=== PATIENT | female | born 2000 | race Caucasian/White ===

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

== ENCOUNTER 2020-02-22 20:44 | Emergency (ER) | payer OTHER, MEDICAID ==
[~2020-02-22] VITALS: Ht 165.1 cm; Wt 60.3 kg
[~2020-02-22 20:44] MED LIST: AUGMENTIN200 MG/51 PO; POT CITRATE-CI1 EACH PO; ZANTAC 150MG T150 MG PO; ZOFRAN ODT4 MG DISSOLVE; ZOFRAN ODT4 MG PO
[2020-02-22] MEDS ORDERED: ZOLOFT25 MG PO (21:00)
[2020-02-22] MEDS ORDERED: PEPCID20 MG PO (21:00)
[2020-02-22 21:19] LABS: ABSOLUTE LYMPHOCYTES 1.2 thou/uL (0.8-5.3); ABSOLUTE MONOCYTES 0.6 thou/uL (0.0-1.2); ABSOLUTE NEUTROPHILS 7.8 thou/uL (1.6-8.1); BASOPHILS 0.3 %; EOSINOPHILS 0.2 %; HEMATOCRIT 31.3 % (37.0-47.0); HEMOGLOBIN 11.2 gm/dL (12.0-15.0); LYMPHOCYTES 12.6 %; MCH 32.5 pg (26.0-34.0); MCHC 35.8 g/dL (28.0-37.0); MCV 90.7 fL (80.0-100.0); MONOCYTES 5.8 %; MPV 7.4 fl. (7.2-11.1); NUCLEATED RBCS 0 /100WBC; PLATELET COUNT* 168 thou/uL (150-400); POLYS 81.1 %; RBC 3.45 mil/uL (4.20-5.00); RDW-CV 11.9 % (10.5-14.5); WBC 9.6 thou/uL (4.0-11.0)
[2020-02-22 21:27] LABS: CALCIUM 8.4 mg/dL (8.5-10.1); CREATININE 0.4 mg/dL (0.6-1.3)
[2020-02-22 21:32] LABS: ALBUMIN 3.2 g/dL (3.4-5.0); TOTAL BILIRUBIN 0.5 mg/dL (<0.1-1.0); TOTAL PROTEIN 6.8 g/dL (6.4-8.2)
[2020-02-22 21:32] LABS: URINE BLOOD 1+ (Negative); URINE CLARITY SL CLOUDY; URINE COLOR YELLOW; URINE GLUCOSE-RANDOM NEGATIVE (Negative); URINE NITRITE-REFLEX NEGATIVE (Negative); URINE PROTEIN TRACE (Negative); URINE SPECIFIC GRAVITY >= 1.030 (1.005-1.030)
[2020-02-22 21:34] LABS: URINE BILIRUBIN 1+ (Negative); URINE KETONES 3+ (Negative); URINE LEUKOCYTES-REFLEX 2+ (Negative)
[2020-02-22 21:34] LABS: POTASSIUM 2.8 mmol/L (3.5-5.1)
[2020-02-22 21:37] LABS: ICTOTEST (BILI CONFIRMATORY) Negative (Negative)
[2020-02-22 21:51] LABS: BACTERIA-REFLEX >30 Many /HPF (None Seen); CASTS None Seen /LPF (None Seen); CRYSTALS None Seen /LPF (None Seen); SQUAMOUS >10 Many /LPF (0-3); URINE RBC 3-10 Few /HPF (0-2); URINE WBC-REFLEX 6-15 Few /HPF (0-5)
[2020-02-22] MEDS ORDERED: POTASSIUM20 PO (23:01)
[2020-02-22] MEDS ORDERED: KEFLEX500 M1 PO (23:01)
[2020-02-22] MEDS ORDERED: ZOFRAN ODT4 MG PO (23:01)
[2020-02-22 23:34] VITALS: BP 107/87
== END 2020-02-22 23:35 | disposition home or self-care (01) ==
LOC: M.ERS 20:44
PROVIDERS: Emergency Medicine
DX: O23.42 Unspecified infection of urinary tract in pregnancy, second trimester (principal); O26.892 Other specified pregnancy related conditions, second trimester; E58 Dietary calcium deficiency; O99.612 Diseases of the digestive system complicating pregnancy, second trimester; K21.9 Gastro-esophageal reflux disease without esophagitis; Z3A.23 23 weeks gestation of pregnancy; Z79.899 Other long term (current) drug therapy

== ENCOUNTER 2020-08-12 18:05 | Emergency (ER) | payer OTHER, MEDICAID ==
[~2020-08-12] VITALS: Ht 165.1 cm; Wt 63.5 kg
[~2020-08-12 18:05] MED LIST changes: +KEFLEX500 M1 PO; +PEPCID20 MG PO; +POTASSIUM20 PO; +ZOLOFT25 MG PO
[2020-08-12 18:45] LABS: HEMOGLOBIN 12.9 gm/dL (12.0-15.0); MCH 29.1 pg (26.0-34.0); MCHC 33.2 g/dL (28.0-37.0); MCV 87.7 fL (80.0-100.0); MPV 7.6 fl. (7.2-11.1); NUCLEATED RBCS 0 /100WBC; PLATELET COUNT* 253 thou/uL (150-400); RBC 4.44 mil/uL (4.20-5.00); RDW-CV 13.2 % (10.5-14.5); WBC 11.2 thou/uL (4.0-11.0)
[2020-08-12 18:53] LABS: CALCIUM 9.1 mg/dL (8.5-10.1); CREATININE 0.9 mg/dL (0.6-1.3); POTASSIUM 3.3 mmol/L (3.5-5.1)
[2020-08-12 18:58] LABS: ALBUMIN 4.5 g/dL (3.4-5.0); TOTAL BILIRUBIN 0.6 mg/dL (<0.1-1.0); TOTAL PROTEIN 8.1 g/dL (6.4-8.2)
[2020-08-12 19:10] LABS: ABSOLUTE LYMPHOCYTES 0.9 thou/uL (0.8-5.3); ABSOLUTE MONOCYTES 0.3 thou/uL (0.0-1.2)
[2020-08-12 19:11] LABS: PLATELET ESTIMATE ADEQUATE
[2020-08-12 19:43] LABS: URINE BLOOD 3+ (Negative); URINE COLOR YELLOW; URINE GLUCOSE-RANDOM NEGATIVE (Negative); URINE LEUKOCYTES-REFLEX NEGATIVE (Negative); URINE NITRITE-REFLEX NEGATIVE (Negative); URINE PROTEIN 2+ (Negative); URINE SPECIFIC GRAVITY >= 1.030 (1.005-1.030); URINE UROBILINOGEN 0.2 E.U./dl (0.2-1.0)
[2020-08-12 19:51] LABS: ICTOTEST (BILI CONFIRMATORY) Negative (Negative); URINE BILIRUBIN 2+ (Negative); URINE CLARITY HAZY; URINE KETONES 3+ (Negative)
[2020-08-12 19:59] LABS: AMP/METHAMP Negative (Negative); BARBITURATES Negative (Negative); BENZODIAZEPINES Negative (Negative); COCAINE Negative (Negative); METHADONE Negative (Negative); OPIATES Negative (Negative); PCP Negative (Negative); THC POSITIVE (Negative)
[2020-08-12] MEDS ORDERED: OMEPRAZOLE40 MG PO (20:00)
[2020-08-12] MEDS ORDERED: REGLAN 10 MG TA10 MG PO (20:00)
[2020-08-12] MEDS ORDERED: CARAFATE1 GM/10 ML PO (20:00)
[2020-08-12 20:02] LABS: BACTERIA-REFLEX 1-9 Few /HPF (None Seen); CASTS None Seen /LPF (None Seen); MUCUS >6 Heavy strn/LPF (None Seen); SQUAMOUS 4-10 Moderate /LPF (0-3); URINE RBC 3-10 Few /HPF (0-2); URINE WBC-REFLEX 0-5 Rare /HPF (0-5)
[2020-08-12 20:03] LABS: CRYSTALS None Seen /LPF (None Seen)
[2020-08-12 20:15] VITALS: BP 145/98
== END 2020-08-12 20:16 | disposition home or self-care (01) ==
LOC: M.ERS 18:05
PROVIDERS: Nurse Practitioner Family
DX: R10.13 Epigastric pain (principal); R11.2 Nausea with vomiting, unspecified; K21.9 Gastro-esophageal reflux disease without esophagitis; Z79.899 Other long term (current) drug therapy

== ENCOUNTER 2020-08-14 06:49 | Emergency (ER) | payer OTHER, MEDICAID ==
[~2020-08-14] VITALS: Ht 165.1 cm; Wt 63.5 kg
[~2020-08-14 06:49] MED LIST changes: +CARAFATE1 GM/10 ML PO; +OMEPRAZOLE40 MG PO; +REGLAN 10 MG TA10 MG PO
[2020-08-14 07:55] LABS: ABSOLUTE LYMPHOCYTES 0.8 thou/uL (0.8-5.3); ABSOLUTE MONOCYTES 0.5 thou/uL (0.0-1.2); ABSOLUTE NEUTROPHILS 6.4 thou/uL (1.6-8.1); BASOPHILS 0.5 %; EOSINOPHILS 0.1 %; HEMATOCRIT 37.4 % (37.0-47.0); HEMOGLOBIN 12.4 gm/dL (12.0-15.0); LYMPHOCYTES 9.8 %; MCHC 33.2 g/dL (28.0-37.0); MCV 87.2 fL (80.0-100.0); MONOCYTES 6.5 %; MPV 7.2 fl. (7.2-11.1); NUCLEATED RBCS 0 /100WBC; PLATELET COUNT* 247 thou/uL (150-400); POLYS 83.1 %; RBC 4.28 mil/uL (4.20-5.00); RDW-CV 13.1 % (10.5-14.5); WBC 7.7 thou/uL (4.0-11.0)
[2020-08-14 08:03] LABS: CALCIUM 8.8 mg/dL (8.5-10.1); CREATININE 0.8 mg/dL (0.6-1.3); POTASSIUM 3.1 mmol/L (3.5-5.1)
[2020-08-14 08:06] LABS: URINE BLOOD 3+ (Negative); URINE CLARITY CLEAR; URINE COLOR DARK YELLOW; URINE GLUCOSE-RANDOM NEGATIVE (Negative); URINE LEUKOCYTES-REFLEX NEGATIVE (Negative); URINE NITRITE-REFLEX NEGATIVE (Negative); URINE PROTEIN 2+ (Negative); URINE SPECIFIC GRAVITY 1.025 (1.005-1.030); URINE UROBILINOGEN 0.2 E.U./dl (0.2-1.0)
[2020-08-14 08:07] LABS: ALBUMIN 4.2 g/dL (3.4-5.0); TOTAL BILIRUBIN 0.6 mg/dL (<0.1-1.0); TOTAL PROTEIN 8.6 g/dL (6.4-8.2)
[2020-08-14 08:08] LABS: ICTOTEST (BILI CONFIRMATORY) Negative (Negative); URINE BILIRUBIN 2+ (Negative); URINE KETONES 3+ (Negative)
[2020-08-14 08:12] LABS: SQUAMOUS >10 Many /LPF (0-3)
[2020-08-14 08:13] LABS: BACTERIA-REFLEX 1-9 Few /HPF (None Seen); CASTS None Seen /LPF (None Seen); CRYSTALS None Seen /LPF (None Seen); MUCUS 0-3 Light strn/LPF (None Seen); URINE RBC >20 Many /HPF (0-2); URINE WBC-REFLEX 0-5 Rare /HPF (0-5)
--- NOTE | 2020-08-14 10:24 | EKG ---
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: : 2000 Requested By: Wayne Monaco Order Number: [id number] MD: Jordi Escobedo Measurements Intervals [place] Rate: 75 P: 66 RI: 132 QRS: 54 QRSD: 95 T: 46 QT: 394 QTc: 441 Interpretive Statements Sinus rhythm Compared to ECG 06/17/2017 19:46:23 Sinus tachycardia no longer present Electronically Signed On 08-14-2020 10:24:37 INSTRUCTIONAL ASSISTANT by Jordi Escobedo [email or web address] <ELECTRONICALLY SIGNED> By: Jordi Escobedo MD, [facility] 08/14/20 [facility] 1 1 Jordi Escobedo MD, [facility] /EPI
[2020-08-14] MEDS ORDERED: HYDROCODON-ACE1 EAC7 PO (10:30)
[2020-08-14] MEDS ORDERED: PHENERGAN 25 MG25 M1 PO (10:30)
[2020-08-14] MEDS ORDERED: PROMS25 WY RECTAL (10:30)
[2020-08-14 10:55] VITALS: BP 122/84
== END 2020-08-14 11:32 | disposition home or self-care (01) ==
LOC: M.ERS 06:49
PROVIDERS: Emergency Medicine Emergency Medical Services
DX: R10.84 Generalized abdominal pain (principal); Z20.822 Contact with and (suspected) exposure to COVID-19; K21.9 Gastro-esophageal reflux disease without esophagitis

== ENCOUNTER 2020-08-17 17:46 | Observation (INO) | payer OTHER, MEDICAID ==
[~2020-08-17] VITALS: Ht 165.1 cm; Wt 63.5 kg
[~2020-08-17 17:46] MED LIST changes: +HYDROCODON-ACE1 EAC7 PO; +PHENERGAN 25 MG25 M1 PO; +PROMS25 WY RECTAL
[2020-08-17 18:00] VITALS: BP 143/102
[2020-08-17 18:21] LABS: URINE BLOOD TRACE (Negative); URINE CLARITY CLEAR; URINE COLOR YELLOW; URINE GLUCOSE-RANDOM NEGATIVE (Negative); URINE KETONES 2+ (Negative); URINE LEUKOCYTES NEGATIVE (Negative); URINE NITRITE NEGATIVE (Negative); URINE PROTEIN 1+ (Negative)
[2020-08-17 18:21] LABS: ABSOLUTE LYMPHOCYTES 1.4 thou/uL (0.8-5.3); ABSOLUTE MONOCYTES 0.6 thou/uL (0.0-1.2); ABSOLUTE NEUTROPHILS 4.3 thou/uL (1.6-8.1); BASOPHILS 0.6 %; EOSINOPHILS 0.6 %; HEMATOCRIT 40.4 % (37.0-47.0); HEMOGLOBIN 13.8 gm/dL (12.0-15.0); MCH 29.7 pg (26.0-34.0); MCHC 34.2 g/dL (28.0-37.0); MCV 86.7 fL (80.0-100.0); MONOCYTES 9.1 %; MPV 7.4 fl. (7.2-11.1); NUCLEATED RBCS 0 /100WBC; PLATELET COUNT* 267 thou/uL (150-400); POLYS 67.7 %; RBC 4.66 mil/uL (4.20-5.00); RDW-CV 12.9 % (10.5-14.5); WBC 6.3 thou/uL (4.0-11.0)
[2020-08-17 18:25] LABS: ICTOTEST (BILI CONFIRMATORY) Negative (Negative); URINE BILIRUBIN 1+ (Negative)
[2020-08-17 18:28] LABS: CALCIUM 9.5 mg/dL (8.5-10.1); CREATININE 0.7 mg/dL (0.6-1.3)
[2020-08-17 18:30] LABS: POTASSIUM 2.7 mmol/L (3.5-5.1)
[2020-08-17 18:38] LABS: ALBUMIN 4.4 g/dL (3.4-5.0); TOTAL BILIRUBIN 0.7 mg/dL (<0.1-1.0); TOTAL PROTEIN 8.4 g/dL (6.4-8.2)
[2020-08-17 19:27] VITALS: BP 142/102
[2020-08-17 20:20] VITALS: BP 147/108
[2020-08-18 01:47] VITALS: BP 135/59
[2020-08-18 04:27] LABS: HEMATOCRIT 34.3 % (37.0-47.0); MCH 29.6 pg (26.0-34.0); MCV 87.3 fL (80.0-100.0); MPV 7.8 fl. (7.2-11.1); RBC 3.93 mil/uL (4.20-5.00); WBC 7.4 thou/uL (4.0-11.0)
[2020-08-18 04:33] LABS: CREATININE 0.9 mg/dL (0.6-1.3)
[2020-08-18 04:35] VITALS: BP 142/88
[2020-08-18 04:43] LABS: HEMOGLOBIN 11.6 gm/dL (12.0-15.0)
[2020-08-18 05:16] LABS: POTASSIUM 2.8 mmol/L (3.5-5.1)
[2020-08-18 07:51] VITALS: BP 146/111
--- NOTE | 2020-08-18 11:58 | EKG ---
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 08/18/20 [id number] 1820 Roshan Christensen MD, [facility] /EPI
[2020-08-18 12:00] VITALS: BP 130/77
[2020-08-18 12:40] VITALS: BP 146/111
[2020-08-18 13:47] VITALS: BP 146/111
== END 2020-08-18 13:45 | disposition home or self-care (01) ==
LOC: M.ERS 17:46 → M.TBA-ER 18:47 → M.2W 20:10
PROVIDERS: Physician Assistant; ADMIT Family Medicine; ATTEND Family Medicine
DX: E87.6 Hypokalemia (principal); R10.13 Epigastric pain; E86.0 Dehydration; Z20.822 Contact with and (suspected) exposure to COVID-19; R11.2 Nausea with vomiting, unspecified; K21.9 Gastro-esophageal reflux disease without esophagitis; R63.8 Other symptoms and signs concerning food and fluid intake; E86.9 Volume depletion, unspecified; Z79.899 Other long term (current) drug therapy